=== PATIENT | male | born 1965 | race African-American/Black ===

== ENCOUNTER 2019-11-09 17:32 | Emergency (ER) | payer SELFPAY ==
--- NOTE | 2019-11-09 18:05 | NUR ---
Multiple calls NO response Eloped
== END 2019-11-09 18:06 | disposition home or self-care (01) ==
LOC: EDBD → ER 17:34
DX: Z53.21 Procedure and treatment not carried out due to patient leaving prior to being seen by health care provider (principal)

== ENCOUNTER 2019-11-09 18:38 | Emergency (ER) | payer SELFPAY ==
[~2019-11-09] VITALS: Ht 190.5 cm; Wt 107.0 kg
--- NOTE | 2019-11-09 19:05 | NUR ---
PT AMBULATORY TO ER BED 15. PT STATES "I WANT TO TALK TO A PSYCHIATRIST." AND IS REFUSING TO ANSWER ANY OTHER QUESTION. STABLE VITALS. NAD NOTED. SITTER AT BEDSIDE. AWAITING MD ANDRADE.
--- NOTE | 2019-11-09 19:08 | NUR ---
DR HEREDIA AT BEDSIDE FOR EVAL.
--- NOTE | 2019-11-09 19:14 | NUR ---
ASKED PATIENT TO PROVIDE URINE SAMPLE, PT STATED "FUCK YOU ALADIN"
--- NOTE | 2019-11-09 19:20 | NUR ---
WATER FILTER CLEANER AT BEDSIDE FOR BLOOD DRAW.
--- NOTE | 2019-11-09 19:21 | NUR ---
PT UNCOOPERATIVE, YELLING AND SPITTING WHILE SPEAKING.
[2019-11-09 19:30] LABS: BASOPHILS # (AUTO) 0.1 /CMM (0.0-0.2); BASOPHILS % (AUTO) 2.1 % (0.0-2.0); EOSINOPHILS % (AUTO) 1.1 % (0.0-6.0); HEMATOCRIT 42 % (39-51); HEMOGLOBIN 13.6 g/dL (13.5-17.5); LYMPHOCYTES # (AUTO) 1.4 /CMM (0.8-4.8); LYMPHOCYTES % (AUTO) 27.2 % (20.0-44.0); MEAN CORPUSCULAR HGB CONC 32 g/dl (31.0-36.0); MEAN CORPUSCULAR VOLUME 89 fL (80-96); MONOCYTES # (AUTO) 0.5 /CMM (0.1-1.30); MONOCYTES % (AUTO) 9.5 % (2.0-12.0); NEUTROPHILS # (AUTO) 3.1 /CMM (1.8-8.9); NEUTROPHILS % (AUTO) 60.1 % (43.0-81.0); PLATELET COUNT (AUTO) 138 /CMM (150-450); RED BLOOD CELL COUNT(AUTO) 4.75 MIL/uL (4.5-6.0); WHITE BLOOD COUNT (AUTO) 5.2 K/uL (4.3-11.0)
--- NOTE | 2019-11-09 19:33 | NUR ---
ATTEMPTED TO COLLECT URINE SAMPLE FROM PT. PT REFUSING TO TALK OR ANSWER QUESTIONS. TIMO GILES MADE AWARE. WILL REATTEMPT AT A LATER TIME.
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
--- NOTE | 2019-11-09 20:31 | NUR ---
Note zuleyma in EDM - 11/09/19 at 2107 by EVARISTO PT SEVERELY AGITATED GOT OUT BED ATTEMPTED TO HIT AT ER STAFF. 2 SECURITY OFFICERS AT BEDSIDE, PT ASSISTED BACK TO BED. PLACE PT ON 4 POINT VELCRO RESTRAINTS PER ER MD ORDER. WILL CONTINUE TO MONITOR PT CLOSELY.
[2019-11-09] MEDS ORDERED: OLANZAPINE 10 MG VIAL IM ONE ×2 (20:44→21:00)
[2019-11-09 21:06] LABS: CALCIUM, SERUM 9.4 mg/dL (8.5-10.1); CARBON DIOXIDE 20 mmol/L (21-32); CHLORIDE 103 mmol/L (98-107); CREATININE 1.1 mg/dL (0.6-1.3); GLUCOSE 89 mg/dL (74-106); POTASSIUM 3.8 mmol/L (3.5-5.1); SODIUM SERUM 138 mmol/L (136-145); UREA NITROGEN, BLOOD 12 mg/dL (7-18)
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
[2019-11-09 21:12] LABS: ACETAMINOPHEN < 2 ug/ml (10-30); ALANINE AMINOTRANSFERASE 20 U/L (12-78); ALBUMIN 4.3 g/dL (3.4-5.0); ALCOHOL, BLOOD 13 mg/dL (0-0); ALKALINE PHOSPHATASE 40 U/L (46-116); ASPARTATE AMINOTRANSFERASE 26 U/L (15-37); BILIRUBIN,DIRECT 0.1 mg/dL (0.0-0.2); BILIRUBIN,TOTAL 0.7 mg/dL (0.2-1.0); SALICYLATE 3.8 mg/dL (2.8-20.0)
--- NOTE | 2019-11-09 21:51 | NUR ---
PT ASLEEP. VSS.
--- NOTE | 2019-11-09 22:15 | NUR ---
PT REPOSITIONED FROM SUPINE TO LEFT SIDE. RANGE OF MOTION ACTIVE ON ALL FOUR EXTREMITIES.
--- NOTE | 2019-11-10 00:02 | NUR ---
PT RESTING. PROVIDED WITH WATER.
--- NOTE | 2019-11-10 00:11 | NUR ---
PT REPOSITIONED FROM LEFT TO RIGHT SIDE. RANGE OF MOTION ACTIVE ON ALL FOUR EXTREMITIES.
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
--- NOTE | 2019-11-10 00:51 | NUR ---
PT PROVIDED WITH ORANGE JUICE AND CRACKERS.
--- NOTE | 2019-11-10 02:31 | NUR ---
PT CUT RESTRAINTS AND AMBULATED TO NURSING STATION. STATED "I WANT TO LEAVE" THEN STATED "NA FUCK THAT, CALL [employer]." [employer] WAS CALLED, PT AMBULATED BACK AND FORTH STATING "WHERE THE MOTHER FUCKING [facility] AT."
--- NOTE | 2019-11-10 02:42 | NUR ---
[employer] AT BEDSIDE. PT PLACED IN HANDCUFFS AND RESTRAINTS PLACED BACK ON PATIENT.
[2019-11-10 03:25] LABS: APPEARANCE,URINE Clear (CLEAR); BILIRUBIN,URINE Negative (NEGATIVE); BLOOD, URINE Negative Ery/uL (NEGATIVE); COLOR,URINE Yellow (YELLOW); KETONES,URINE 15 (NEGATIVE); LEUKOCYTE ESTERASE ,URINE Negative (NEGATIVE); NITRITE, URINE Negative (NEGATIVE); PH,URINE 5.5 (5.0-8.0); PROTEIN,URINE 30 mg/dl (NEGATIVE); UGLUCOSE Negative (NEGATIVE)
--- NOTE | 2019-11-10 03:26 | NUR ---
SHAWN FROM [facility]IS[facility] AT BEDSIDE SPEAKING TO PATIENT.
[2019-11-10 04:52] LABS: BACTERIA,URINE Few /HPF (None Seen); MUCUS,URINE Moderate /LPF (None Seen); RBC,URINE 0-2 /HPF (0-2); SPERM,URINE Rare /HPF (None Seen); SQUAMOUS EPITHELIAL CELL,UR Rare /HPF (None Seen)
--- NOTE | 2019-11-10 04:55 | NUR ---
PT PROVIDED WITH MORE BLANKETS.
--- NOTE | 2019-11-10 05:49 | NUR ---
SHAWN WILSON FINGERPRINT CLERK AT BEDSIDE TO RE-EVAL PT.
--- NOTE | 2019-11-10 06:50 | NUR ---
Patient discharged to home in stable condition. Written and verbal after care instructions given. Patient verbalizes understanding of instruction. Refused to sign discharge papers.
[2019-11-10 06:51] VITALS: BP 128/75
== END 2019-11-10 06:51 | disposition home or self-care (01) ==
LOC: ER 18:38 → EDBD 18:38 → ER 11-10 06:51
DX: R45.6 Violent behavior (principal); R45.1 Restlessness and agitation; Z88.8 Allergy status to other drugs, medicaments and biological substances; Z59.0 Homelessness
CPT/HCPCS: 36415; 80048; 80076; 80305; 80307; 80329; 81001; 85025; 96372; 99283; G0480; J3490; 81000-TC